=== PATIENT | male | born 1940 | race Hispanic/Latino ===

== ENCOUNTER 2018-10-17 15:30 | Inpatient (IN) | payer OTHER ==
[~2018-10-17] VITALS: Ht 165.1 cm; Wt 85.7 kg
[2018-10-17 15:15] VITALS: BP 126/60
[2018-10-17 15:34] LABS: APPEARANCE,URINE Clear (CLEAR); BILIRUBIN,URINE Negative (NEGATIVE); COLOR,URINE Dark Yellow (YELLOW); GLUCOSE, URINE (UA) Negative (NEGATIVE); KETONES,URINE Trace mg/dL (NEGATIVE); LEUKOCYTE ESTERASE ,URINE Moderate (NEGATIVE); NITRATE,URINE Negative (NEGATIVE); OCCULT BLOOD,URINE Negative (NEGATIVE); PH,URINE 6.5 (5.0-8.0); PROTEIN,URINE Negative (NEGATIVE)
[2018-10-17 16:17] LABS: RBC,URINE 0-1 /HPF (0-1)
[2018-10-17 16:21] LABS: BACTERIA,URINE Few /HPF (None Seen); TRICHOMONAS,URINE Rare /LPF (None Seen)
[2018-10-17 16:23] LABS: SQUAMOUS EPITHELIAL CELL,UR Few /HPF (0-2); YEAST,URINE BUDDING Few /HPF (None Seen)
[2018-10-17] MEDS ORDERED: LISI40TA4 PO (16:36)
[2018-10-17] MEDS ORDERED: ROSU40TA20 PO (16:36)
[2018-10-17] MEDS ORDERED: PROP20TA7 PO (16:36)
[2018-10-17] MEDS ORDERED: ASPIRIN PO (16:36)
[2018-10-17] MEDS ORDERED: TAMS0.4C32 PO (16:36)
[2018-10-17] MEDS ORDERED: AMLO5TAB9 PO (16:36)
[2018-10-17] MEDS: CEFAZOLIN SODIUM 1 GM VIAL IVP SCH (17:00)
--- NOTE | 2018-10-17 17:39 | NUR ---
ABNORMAL LABS REPORTED ABNORMAL LABS/ UA TO DR. ESCALANTE. ORDERED GENTAMICIN 240MG IV MORNING OF PROCEDURE.
[2018-10-18] MEDS: CEFAZOLIN SODIUM 1 GM VIAL IVP SCH (17:00)
[2018-10-19] MEDS: CEFAZOLIN SODIUM 1 GM VIAL IVP SCH (17:00)
[2018-10-20] VITALS (19 sets, daily range): BP systolic 96–125; BP diastolic 50–73
[2018-10-20] MEDS ORDERED: GENTAMICIN SULFATE 240 MG in SODIUM CHLORIDE 0.9% 100 ML IV PRN (06:30)
[2018-10-20] MEDS ORDERED: LACTATED RINGERS 1000ML 1,000 ML IV ONE (10:13)
[2018-10-20] MEDS ORDERED: ACETAMINOPHEN EXTRA STRENGTH 500 MG TABLET ONE (12:30)
[2018-10-20] MEDS ORDERED: CELECOXIB 200 MG CAP ONE (12:30)
[2018-10-20] MEDS ORDERED: KETOROLAC TROMETHAMINE 15MG/ML ONE (12:31)
[2018-10-20] MEDS ORDERED: OXYCODONE HCL 10 MG TAB.SR.12H PO ONE (12:31)
[2018-10-20] MEDS ORDERED: TRANEXAMIC ACID 1000MG/10ML IV ONE (12:40)
[2018-10-20] MEDS ORDERED: BUPIVACAINE/EPI/PF 0.25% 50 ML VIAL ONE (12:41)
[2018-10-20] MEDS ORDERED: ROPIVACAINE 0.5% 5MG/ML 30ML IJ ONE (13:15)
[2018-10-20] MEDS ORDERED: SUCCINYLCHOLINE 200MG/10ML SYR ONE (13:17)
[2018-10-20] MEDS ORDERED: LIDOCAINE PF 2% 5ML ABBOJECT ONE (13:17)
[2018-10-20] MEDS ORDERED: FENTANYL CITRATE PF 50 MCG/1 ML 2ML VIAL ONE (13:18)
[2018-10-20] MEDS ORDERED: PROPOFOL 10 MG/ML 20ML VIAL IV ONE (13:18)
[2018-10-20] MEDS ORDERED: ROCURONIUM 10MG/1ML SYR 10 MG/ML ML ONE (13:18)
[2018-10-20] MEDS ORDERED: GLYCOPYRROLATE 1 MG/5 ML SYRINGE ONE (13:27)
[2018-10-20] MEDS ORDERED: EPHEDRINE SULFATE 50 MG/ML AMPULE ONE ×2 (13:35→16:36)
[2018-10-20] MEDS: CEFAZOLIN SODIUM 1 GM VIAL IVP SCH ×3 (13:40→19:52)
[2018-10-20] MEDS ORDERED: SODIUM CHLORIDE 0.9% 10 ML VIAL ONE (13:40)
[2018-10-20] MEDS ORDERED: PHENYLEPHRINE HCL 10 MG/ML 1ML VIAL IV ONE (13:40)
[2018-10-20] MEDS ORDERED: BUPIVACAINE/EPI/PF 0.5% 30ML VIAL IJ ONE (13:57)
[2018-10-20] MEDS ORDERED: FERROUS FUMARATE 324 MG TABLET PO PRN (15:15)
[2018-10-20] MEDS ORDERED: TEMAZEPAM 15 MG CAPSULE PO PRN (15:15)
[2018-10-20] MEDS ORDERED: DiphenhydrAMINE HCL 50 MG/ML VIAL IVP PRN (15:15)
[2018-10-20] MEDS ORDERED: CALCIUM CARBONATE 500 MG TABLET PO PRN (15:15)
[2018-10-20] MEDS ORDERED: LIDOCAINE HCL-MPF 1% 2ML VIAL IVP PRN (15:15)
[2018-10-20] MEDS: ACETAMINOPHEN EXTRA STRENGTH 500 MG TABLET PO SCH ×2 (15:15→22:15)
[2018-10-20] MEDS ORDERED: KETOROLAC TROMETHAMINE 15MG/ML IV PRN (15:15)
[2018-10-20] MEDS ORDERED: TRAMADOL HCL 50 MG TABLET PO PRN (15:15)
[2018-10-20] MEDS ORDERED: POTASSIUM CHLORIDE 20MEQ/100ML 100 ML IV PRN (15:15)
[2018-10-20] MEDS ORDERED: POTASSIUM CHLORIDE 20 MEQ ERTAB PO PRN (15:15)
[2018-10-20] MEDS: METRONIDAZOLE 250 MG TABLET PO SCH ×2 (15:15→22:14)
[2018-10-20] MEDS ORDERED: POTASSIUM CHLORIDE 10% ELIXIR 20 MEQ/15 ML UDCUP PO PRN (15:15)
[2018-10-20] MEDS ORDERED: ONDANSETRON HCL 4 MG/2 ML VIAL IVP PRN (15:15)
[2018-10-20] MEDS ORDERED: OXYCODONE HCL 5 MG TAB PO PRN (15:15)
[2018-10-20] MEDS ORDERED: NEOSTIGMINE 5MG/5ML SYR IV ONE (15:17)
[2018-10-20] MEDS ORDERED: LIDOCAINE HCL-MPF 1% 5ML AMP IJ ONE (15:34)
[2018-10-20] MEDS ORDERED: IPRATROPIUM/ALBUTEROL SULFATE 3 ML SOLUTION IH ONE (16:04)
--- NOTE | 2018-10-20 16:30 | NUR ---
DCP CM met with pt discussed dc plans. Pt is independent prior to surgery, lives at home alone sister lives close by. Has a walker and cane, sister to bring standard walker for PT to test. Pt feels safe to go back home, sister and family able to assist with transportation and needs as necessary. Pt agreeable for home /w HH and DME, [facility], declined SNF placement. [facility]. DC plan to home home w/HH and DME. CM to cont to follow up. Addendum: 10/21/18 at 1237 by RHIANNA DOMÍNGUEZ LVN CM Amended: Links added.
--- NOTE | 2018-10-20 16:40 | NUR ---
EPHEDRINE 25MG IM GIVEN AT THIS TIME. Addendum: 10/20/18 at 1646 by NICK OTERO RN RN Amended: Links added.
--- NOTE | 2018-10-20 17:00 | NUR ---
TRANEXAMIC ACID 1GM IVPB GIVEN IN PACU. Addendum: 10/20/18 at 1704 by NICK OTERO RN RN Amended: Links added.
--- NOTE | 2018-10-20 17:20 | NUR ---
POST SURGERY PATIENT RECEIVED FROM PACU VIA HOSPITAL BED IN STABLE CONDITION. HE IS AWAKE, ALERT AND ORIENTED X3. DENIES PAIN AT THIS TIME. CELENA DRESSING TO LEFT KNEE IS DRY AND INTACT WITH GREEN FLASHING LIGHT. POST OP VITAL SIGNS HAVE BEEN INITIATED. SPOUSE IS AT BEDSIDE. BOTH WERE ORIENTED TO ROOM AND USE OF CALL LIGHT. BED IS IN LOWEST POSITION AND LOCKED WITH PERSONAL ITEMS WITHIN REACH. IV IS PATENT INFUSING NS WITH NO REDNESS OR SWELLING NOTED TO SITE.
[2018-10-20] MEDS: SODIUM CHLORIDE 0.9% 1000ML 1,000 ML IV SCH (17:36)
[2018-10-20] MEDS: ASPIRIN 325 MG TABLET PO SCH (19:52)
[2018-10-20] MEDS: FAMOTIDINE 20MG TAB 20 MG TAB PO SCH (19:53)
[2018-10-20] MEDS: PREGABALIN 25 MG CAP PO SCH (19:53)
[2018-10-20] MEDS: CELECOXIB 200 MG CAP PO SCH (19:53)
[2018-10-20] MEDS: PROPRANOLOL HCL 20 MG TAB PO SCH (19:53)
[2018-10-20] MEDS: OXYCODONE HCL 5 MG TAB PO PRN (19:56)
[2018-10-21] VITALS (7 sets, daily range): BP systolic 100–115; BP diastolic 51–68
[2018-10-21] MEDS: OXYCODONE HCL 5 MG TAB PO PRN ×3 (00:02→19:08)
[2018-10-21] MEDS: SODIUM CHLORIDE 0.9% 1000ML 1,000 ML IV SCH ×2 (01:36→11:13)
[2018-10-21] MEDS: CEFAZOLIN SODIUM 1 GM VIAL IVP SCH (03:40)
[2018-10-21 04:42] LABS: HEMATOCRIT 37.6 % (42-54); MEAN CORPUSCULAR HEMOGLOBIN 31.5 pg (27.0-33.0); MEAN CORPUSCULAR HGB CONC 33.5 g/dL (32.0-36.0); PLATELET COUNT (AUTO) 171 K/uL (130-400); RED CELL DISTRIBUTION WIDTH 12.8 % (11.0-15.5); WHITE BLOOD COUNT (AUTO) 8.3 K/uL (4.8-10.8)
[2018-10-21 05:01] LABS: POTASSIUM 4.5 mmol/L (3.5-5.1)
[2018-10-21] MEDS: ACETAMINOPHEN EXTRA STRENGTH 500 MG TABLET PO SCH ×3 (05:53→22:49)
[2018-10-21] MEDS: METRONIDAZOLE 250 MG TABLET PO SCH ×3 (05:53→22:48)
[2018-10-21] MEDS: AMLODIPINE BESYLATE 5 MG TAB PO SCH (09:00)
[2018-10-21] MEDS: LISINOPRIL 20 MG TABLET PO SCH (09:00)
[2018-10-21] MEDS: PROPRANOLOL HCL 20 MG TAB PO SCH ×2 (09:00→19:05)
[2018-10-21] MEDS: TAMSULOSIN HCL 0.4 MG CAP.ER.24H PO SCH ×2 (09:00→09:21)
[2018-10-21] MEDS: ASPIRIN 325 MG TABLET PO SCH ×2 (09:20→19:04)
[2018-10-21] MEDS: PREGABALIN 25 MG CAP PO SCH ×2 (09:21→19:04)
[2018-10-21] MEDS: CELECOXIB 200 MG CAP PO SCH ×2 (09:21→19:05)
[2018-10-21] MEDS: POLYETHYLENE GLYCOL 3350 17 GM POWD.PACK PO SCH (09:21)
[2018-10-21] MEDS: ATORVASTATIN CALCIUM 40 MG TABLET PO SCH (09:21)
[2018-10-21] MEDS: FAMOTIDINE 20MG TAB 20 MG TAB PO SCH ×2 (09:22→19:05)
--- NOTE | 2018-10-21 09:30 | NUR ---
Pt sitting up in chair after having ambulated with physical therapy. Pt is asymptomatic, but bp 86/59 at present. Placed back to bed. Will continue to monitor.
--- NOTE | 2018-10-21 10:28 | NUR ---
CM Note: [facility] Spoke to Shoshana Pandya, currently working on pt HH and DME. Pt pending approval and assign HH and DME. Primary nurse aware. CM to cont to follow up.
[2018-10-22] MEDS: OXYCODONE HCL 5 MG TAB PO PRN ×2 (00:50→08:24)
[2018-10-22 04:00] VITALS: BP 104/54
[2018-10-22] MEDS: METRONIDAZOLE 250 MG TABLET PO SCH ×2 (06:26→15:51)
[2018-10-22] MEDS: ACETAMINOPHEN EXTRA STRENGTH 500 MG TABLET PO SCH ×2 (06:27→15:52)
[2018-10-22 08:07] VITALS: BP 107/55
[2018-10-22] MEDS: TAMSULOSIN HCL 0.4 MG CAP.ER.24H PO SCH ×2 (08:23→08:25)
[2018-10-22] MEDS: ATORVASTATIN CALCIUM 40 MG TABLET PO SCH (08:23)
[2018-10-22] MEDS: POLYETHYLENE GLYCOL 3350 17 GM POWD.PACK PO SCH (08:23)
[2018-10-22] MEDS: FAMOTIDINE 20MG TAB 20 MG TAB PO SCH (08:24)
[2018-10-22] MEDS: CELECOXIB 200 MG CAP PO SCH (08:24)
[2018-10-22] MEDS: ASPIRIN 325 MG TABLET PO SCH (08:24)
[2018-10-22] MEDS: LISINOPRIL 20 MG TABLET PO SCH (08:24)
[2018-10-22] MEDS: PREGABALIN 25 MG CAP PO SCH (08:25)
--- NOTE | 2018-10-22 09:00 | NUR ---
BM LAST REPORTED BM ON 10/19/18. I DID NOT SEE THIS BM BUT PER PATIENT, STATES IT WAS BROWN AND NORMAL CONSISTENCY. Addendum: 10/22/18 at 1143 by DEMIAN CARLIN RN RN Amended: Links added.
[2018-10-22 09:32] VITALS: BP 122/67
[2018-10-22] MEDS: AMLODIPINE BESYLATE 5 MG TAB PO SCH (09:33)
[2018-10-22] MEDS: PROPRANOLOL HCL 20 MG TAB PO SCH (09:33)
--- NOTE | 2018-10-22 10:08 | NUR ---
CM Note: [facility] for [facility] Spoke to Shoshana quintero/MIGUELINA pt has approval for [facility] and [facility] Voucher#[id number]. Spoke to Breanne quintero/[facility] informed of [facility] approval and voucher, stated will deliver equipments in pt's room. Primary nurse aware. CM to con to follow up.
[2018-10-22] MEDS ORDERED: ASPI-1012 PO (11:55)
[2018-10-22] MEDS ORDERED: METR250T PO (11:55)
[2018-10-22] MEDS ORDERED: HYDR-4457 PO (11:55)
[2018-10-22 12:47] VITALS: BP 127/63
--- NOTE | 2018-10-22 14:00 | NUR ---
CM Note: [facility] delivered equipments in pt's room [facility] delivered standard walker no wheels and 3 in 1 chair in pt's room. Pt safe to dc home via private car. Primary nurse aware. CM to cont to follow up.
--- NOTE | 2018-10-22 17:25 | NUR ---
DISCHARGE DISCHARGE TEACHING DONE WITH PATIENT AND USING TEACHBACK METHOD, VERBALIZED UNDERSTANDING. NO NOTED SOB OR DISTRESS. NEW MEDICATION ADMINISTRATION TEACHING DONE WITH PATIENT, VERBALIZED UNDERSTANDING. PT AWARE OF NEED TO ATTEND DR. ESCALANTE APPOINTMENT. CELENA DRESSING CHANGED, INCISION IS DRY AND INTACT. CELENA DRESSING TEACHING DONE WITH PATIENT, VERBALIZED UNDERSTANDING. REPORT CALLED TO [facility]. IV REMOVED, CATH TIP INTACT. PENDING TO BE WHEELED OUT VIA PRIVATE VEHICLE.
[2018-10-23] MEDS ORDERED: BISACODYL 10 MG SUPP.RECT RC PRN (15:15)
== END 2018-10-22 17:34 | disposition home health service (06) | DRG 470 ==
LOC: EDSTATUS 15:30 → DAHIP 10-20 09:18 → 4AH 10-20 16:52
PROVIDERS: ADMIT Orthopaedic Surgery; ATTEND Orthopaedic Surgery
PROC: 0SRD0J9 Replacement of Left Knee Joint with Synthetic Substitute, Cemented, Open Approach (ICD-10-PCS; principal; 2018-10-20 13:14)
DX: M17.12 Unilateral primary osteoarthritis, left knee (principal); J44.9 Chronic obstructive pulmonary disease, unspecified; N40.1 Benign prostatic hyperplasia with lower urinary tract symptoms; K70.30 Alcoholic cirrhosis of liver without ascites; I10 Essential (primary) hypertension; E78.5 Hyperlipidemia, unspecified; Z96.651 Presence of right artificial knee joint; G89.29 Other chronic pain
CPT/HCPCS: 36415; 80048; 81001; 85027; 88305; 88311; 94640; 96365; 96374; 97039; A4218; G0378; J0330; J0690; J1580; J1885; J2001; J2370; J2704; J2710; J2795; J3010; J3490; J7120

== ENCOUNTER → 2019-04-15 | Outpatient (CLI) | payer OTHER ==
[~2019-04-15] MED LIST: AMLO5TAB9 PO; ASPI-1012 PO; HYDR-4457 PO; LISI40TA4 PO; METR250T PO; PROP20TA7 PO; ROSU40TA21 PO; TAMS0.4C32 PO
== END | disposition home or self-care (01) ==
LOC: SHCH 12:48
PROVIDERS: ATTEND Internal Medicine Cardiovascular Disease
DX: I35.8 Other nonrheumatic aortic valve disorders (principal)
CPT/HCPCS: 93306

== ENCOUNTER → 2022-02-13 | Outpatient (CLI) | payer OTHER ==
[~2022-02-13] MED LIST changes: +AMLO-257 PO; -AMLO5TAB9 PO; +IOHEXOL 350 MG/ML 100ML INFUS..BTL IV ONE; -LISI40TA4 PO; +LISI40TA9 PO; +NITROGLYCERIN 4.1 GM SPRAY TL ONE
== END | disposition home or self-care (01) ==
LOC: RAH 07:33
PROVIDERS: ATTEND Internal Medicine Cardiovascular Disease
DX: I10 Essential (primary) hypertension (principal); R07.9 Chest pain, unspecified; R06.02 Shortness of breath
CPT/HCPCS: 75574; Q9967

== ENCOUNTER → 2023-08-12 | Outpatient (CLI) | payer OTHER ==
[~2023-08-12] MED LIST changes: -IOHEXOL 350 MG/ML 100ML INFUS..BTL IV ONE; +IOHEXOL-350 75 ML VIAL IV ONE; -NITROGLYCERIN 4.1 GM SPRAY TL ONE
== END | disposition home or self-care (01) ==
LOC: RAH 10:12 → EDSTATUS 10:30
PROVIDERS: ATTEND Internal Medicine Gastroenterology
DX: K57.30 Diverticulosis of large intestine without perforation or abscess without bleeding (principal); R16.0 Hepatomegaly, not elsewhere classified; D13.4 Benign neoplasm of liver
CPT/HCPCS: 74170; Q9967